=== PATIENT | male | born 1985 | race Caucasian/White ===

== ENCOUNTER 2016-04-14 22:24 | Emergency (ER) | payer MEDICAID ==
[2016-04-14 22:31] VITALS: PULSE 76
[2016-04-14] MEDS ORDERED: ONDANSETRON 4 MG/2 ML VIAL ONE (22:46)
[2016-04-14] MEDS ORDERED: HYDROmorphONE/DILAUDID 1 MG/ML SYR ONE (22:47)
[2016-04-14] MEDS ORDERED: ONDANSETRON 4 MG/2 ML VIAL IVP ONE (22:53)
[2016-04-14] MEDS ORDERED: NS 1,000 ML IV ONE (22:53)
--- NOTE | 2016-04-14 22:53 | EDPHY ---
H & P Smoking Status: Never smoked Time Seen by Provider: 04/14/16 22:41 HPI/ROS: CHIEF COMPLAINT: Abdominal pain HISTORY OF PRESENT ILLNESS: 30-year-old male presents to the emergency department by private vehicle complaining of right-sided abdominal pain, right testicular pain and right flank pain that began abruptly around 5:00 p.m.. Patient has no nausea or vomiting. No reported trauma. He states that when he was urinating he noted some blood in his urine and he also had some burning sensation with urinating. Denies chest pain or difficulty breathing. Denies fevers or chills. Denies urinary frequency. REVIEW OF SYSTEMS: Constitutional: No fever, no chills. Eyes: No double or blurry vision. ENT: No sore throat. Respiratory: No cough, no shortness of breath. Cardiac: No chest pain. Gastrointestinal: Right-sided abdominal pain. No vomiting or diarrhea. Genitourinary: Hematuria, dysuria as above. Musculoskeletal: Right flank pain. No neck pain. Skin: No rashes. Neurological: No headache. (Von,Delmy M) Past Medical/Surgical History: Negative (Von,Delmy M) Social History: and lives in [place] (Von,Delmy M) Physical Exam: General Appearance: Alert, no distress. Temperature 36.4, 98% on room air. Eyes: Pupils equal and round. Extraocular motions are all intact. ENT: Mouth: Mucous membranes moist. Respiratory: No wheezing, rhonchi, or rales, lungs are clear to auscultation. Cardiovascular: Regular rate and rhythm. Gastrointestinal: Abdomen is soft and nontender, no masses, no rebound or guarding, bowel sounds normal. Mild CVA tenderness on the right. None on the left. Neurological: Alert and oriented x 3, cranial nerves II through XII grossly intact Skin: Warm and dry, no rashes. Musculoskeletal: Nontender to palpate along the cervical, thoracic or lumbar spine. Neck is supple. Genitourinary: Performed with nurseMaxim, at bedside. Circumcised penis. No testicular or scrotal swelling noted. Nontender to palpate the right or left testicle. Extremities: Full range of motion and no peripheral edema. Psychiatric: Patient is oriented X 3, there is no agitation. (Von,Delmy M) Constitutional: Initial Vital Signs Temperature (C) 36.4 C 04/14/16 22:29 Heart Rate 76 04/14/16 22:29 Respiratory Rate 18 04/14/16 22:29 Blood Pressure 112/73 04/14/16 22:29 O2 Sat (%) 98 04/14/16 22:29 O2 Delivery Mode Room Air O2 (L/minute) 2 Allergies/Adverse Reactions: No Known Allergies Allergy (Unverified 01/26/15 18:46) Home Medications: Medication Instructions Recorded Hydrocodone/APAP 5/325 [[place] 1 - 2 tab PO Q4H PRN #10 tab 04/14/16 5/325] Ondansetron HCl [Zofran] 4 mg PO Q4-6PRN PRN #10 tablet 04/14/16 Tamsulosin HCl [Flomax] 0.4 mg PO DAILY #10 cap 04/14/16 Medical Decision Making ED Course/Re-evaluation: 30-year-old male presents with abdominal pain and flank pain. He noted blood in the urine. I was concerned about possible kidney stone. CT scan of without contrast of the abdomen and pelvis was ordered. Urinalysis reveals 3+ blood. CBC and chemistries were within normal limits. (Delmy Longoria) [id number]: this patient signed over to me at 12:00 am from Delmy DUKE, follow-up CT scan, this patient's CT scan shows 5 x 3 mm in the right UVJ with moderate amount of hydronephrosis this explains the blood in his urine and flank and abdominal pain. He does have a very small 4 mm stone in left kidney. Otherwise unremarkable CT scan. I have met evaluated the patient is resting comfortably no acute distress, we did go over CT results with him. Understands he is stone needs to follow up with Urology. Urology has been given to him on his paperwork prescription for pain medicine, Flomax. He understands drink lots of water return emergency room if there is any worsening symptoms includes severe abdominal pain, fever, vomiting CT scan of the abdomen pelvis without contrast The results of the study are this shows a 5 x 3 mm right UVJ stone moderate hydronephrosis, also left 4 mm stone in the kidney parenchyma, otherwise unremarkable CT scan The study was read by Dr. Hooper I viewed the images myself on the PACS system. (Colton Mooney) Differential Diagnosis: Including but not limited to kidney stone, urinary tract infection, pyelonephritis, testicular torsion, acute appendicitis (Delmy Longoria) Care Turn Over: Care will be turned over to Dr. Colton Mooney at 11:35 p.m. (Delmy Longoria) - Data Points Laboratory Results: Laboratory Results 04/14/16 22:35 04/14/16 22:35 04/14/16 22:35 WBC 9.22 10^3/uL (3.80-9.50) RBC 4.92 10^6/uL (4.40-6.38) Hgb 15.0 g/dL (13.7-17.5) Hct 43.0 % (40.0-51.0) MCV 87.4 fL (81.5-99.8) MCH 30.5 pg (27.9-34.1) MCHC 34.9 g/dL (32.4-36.7) RDW 13.0 % (11.5-15.2) Plt Count 251 10^3/uL (150-400) MPV 10.6 fL (8.7-11.7) Neut % (Auto) 60.6 % (39.3-74.2) Lymph % (Auto) 24.8 % (15.0-45.0) [place] % (Auto) 11.1 % (4.5-13.0) Eos % (Auto) 2.6 % (0.6-7.6) Baso % (Auto) 0.7 % (0.3-1.7) Nucleat RBC Rel Count 0.0 % (0.0-0.2) Absolute Neuts (auto) 5.59 10^3/uL (1.70-6.50) Absolute Lymphs (auto) 2.29 10^3/uL (1.00-3.00) Absolute Monos (auto) 1.02 H 10^3/uL (0.30-0.80) Absolute Eos (auto) 0.24 10^3/uL (0.03-0.40) Absolute Basos (auto) 0.06 10^3/uL (0.02-0.10) Absolute Nucleated RBC 0.00 10^3/uL (0-0.01) Immature Gran % 0.2 % (0.0-1.1) Immature Gran # 0.02 10^3/uL (0.00-0.10) Sodium 142 mEq/L (134-144) Potassium 4.1 mEq/L (3.5-5.2) Chloride 104 mEq/L (97-110) Carbon Dioxide 26 mEq/l (22-31) Anion Gap 12 mEq/L (8-16) BUN 18 mg/dL (7-23) Creatinine 1.0 mg/dL (0.7-1.3) Estimated GFR > 60 Glucose 91 mg/dL (70-100) Calcium 9.6 mg/dL (8.5-10.4) Urine Color YELLOW Urine Appearance HAZY Urine pH 6.0 (5.0-7.5) Ur Specific [place] 1.017 (1.002-1.030) Urine Protein NEGATIVE (NEGATIVE) Urine Ketones NEGATIVE (NEGATIVE) Urine Blood 3+ H (NEGATIVE) Urine Nitrate NEGATIVE (NEGATIVE) Urine Bilirubin NEGATIVE (NEGATIVE) Urine Urobilinogen NEGATIVE EU (0.2-1.0) Ur Leukocyte Esterase NEGATIVE (NEGATIVE) Urine RBC 50-182 H /hpf (0-3) Urine WBC 1-3 /hpf (0-3) Ur Epithelial Cells Not Reported Urine Bacteria TRACE H /hpf (NONE SEEN) Urine Mucus TRACE /lpf (NONE-1+) Urine Glucose NEGATIVE (NEGATIVE) Medications Given: Discontinued Medications Hydromorphone HCl (Dilaudid) 0.5 mg IVP EDNOW ONE Stop: 04/14/16 22:55 Last Admin: 04/14/16 22:58 Dose: 0.5 mg Hydromorphone HCl (Dilaudid) 0.5 mg IVP EDNOW ONE Stop: 04/14/16 23:27 Last Admin: 04/14/16 23:15 Dose: 0.5 mg Sodium Chloride (Ns) 1,000 mls @ 0 mls/hr IV EDNOW ONE PRN Reason: Wide Open Stop: 04/14/16 22:54 Last Admin: 04/14/16 22:57 Dose: 1,000 mls Ondansetron HCl (Zofran) 4 mg IVP EDNOW ONE Stop: 04/14/16 22:54 Last Admin: 04/14/16 22:57 Dose: 4 mg Departure - Departure Disposition: Home, Routine, Self-Care Clinical Impression: Kidney stone Condition: Good Instructions: Kidney Stones (ED) Additional Instructions: Flomax daily until stone passes. Strain your urine. Percocet for severe pain as directed. Referrals: Priscilla Sena MD [Medical Doctor] - 2-3 days without fail (Urologist on-call) Prescriptions: Tamsulosin HCl [Flomax] 0.4 mg PO DAILY #10 cap Hydrocodone/APAP 5/325 [[place] 5/325] 1 - 2 tab PO Q4H PRN #10 tab PRN Reason: Pain, Moderate Ondansetron HCl [Zofran] 4 mg PO Q4-6PRN PRN #10 tablet PRN Reason: Nausea/Vomiting, Use 1st
[2016-04-14] MEDS ORDERED: HYDROmorphONE/DILAUDID 1 MG/ML SYR IVP ONE ×2 (22:54→23:26)
[2016-04-14 22:59] LABS: COLOR YELLOW; LEUKOCYTE ESTERASE,URINE NEGATIVE (NEGATIVE); NITRITE,URINE NEGATIVE (NEGATIVE)
[2016-04-14 23:00] LABS: % IMMATURE GRANULYOCYTES 0.2 % (0.0-1.1); ABSOLUTE IMMATURE GRANULOCYTES 0.02 10^3/uL (0.00-0.10); ADD DIFF? NO; ADD MORPH? NO; ADD SCAN? NO; ATYPICAL LYMPHOCYTE FLAG 20 (0-99); FRAGMENT RBC FLAG 0 (0-99); LEFT SHIFT FLG 0 (0-99); LIPEMIA HEMOLYSIS FLAG 90 (0-99); MEAN CELL HEMOGLOBIN 30.5 pg (27.9-34.1); MEAN CELL HEMOGLOBIN CONCENTR. 34.9 g/dL (32.4-36.7); MEAN CELL VOLUME 87.4 fL (81.5-99.8); MEAN PLATELET VOLUME 10.6 fL (8.7-11.7); PLATELET CLUMPS FLAG 0 (0-99); PLATELET COUNT 251 10^3/uL (150-400); RED BLOOD CELL COUNT 4.92 10^6/uL (4.40-6.38)
[2016-04-14 23:13] LABS: BACTERIA TRACE /hpf (NONE SEEN); MUCUS TRACE /lpf (NONE-1+); RBC,URINE 50-182 /hpf (0-3)
[2016-04-14 23:22] LABS: ANION GAP 12 mEq/L (8-16); CALCIUM 9.6 mg/dL (8.5-10.4); CARBON DIOXIDE 26 mEq/l (22-31); CHLORIDE 104 mEq/L (97-110); GLOMERULAR FILTRATION RATE > 60; GLUCOSE 91 mg/dL (70-100); POTASSIUM 4.1 mEq/L (3.5-5.2); SODIUM 142 mEq/L (134-144)
--- NOTE | 2016-04-14 23:55 | CT ---
CT Scan of the Urinary Tract (Abdomen and Pelvis Without Contrast) April 14, 2016 Indication: Right flank pain Technique: Multidetector helical CT imaging was performed from the kidneys to the urinary bladder wi thout contrast. Dose reduction techniques were utilized. Findings: Moderate right hydronephrosis and hydroureter due to a 5 x 3 mm calculus at the ureterovesi francisco junction. The right kidney is minimally enlarged and edematous relative to the left kidney. No pe rinephric fluid collection. A nonobstructing 4 x 3 mm calculus resides in the left intrarenal collecting system. No hydronephrosi s or hydroureter on the left. The urinary bladder is nearly completely empty. No intra-abdominal mass, lymphadenopathy or free fluid. The noncontrast liver, spleen, pancreas, gallbladder, adrenal glands, the abdominal aorta, and bowel pattern are normal. The appendix is normal. Lung bases are clear. Normal bones except for moderate degenerative disk disease at T11-T12. Impression: 1. Moderate right hydronephrosis and hydroureter secondary to a 5 x 3 mm calculus at the ureterovesic al junction. 2. Left nephrolithiasis. Comment: The case was discussed with Delmy Longoria PA-C at 11:50 p.m. April 14, 2016. Attention: This CT examination is specifically designed to evaluate patients who are clinically susp ected of having acute obstructive uropathy. This examination does not use radiographic contrast, and as such, provides only a limited evaluation of the abdomen, pelvis and retroperitoneum. If there i s further clinical suspicion for pathological conditions other than obstructive uropathy, a complete CT evaluation of the abdomen and pelvis utilizing intravenous, oral, and rectal contrast should be co nsidered.
[2016-04-15] MEDS ORDERED: HYDROCOD/APAP 5/325 PREPACK#6 BTL TAKEHOME ONE (00:01)
[2016-04-15 00:26] VITALS: BP 129/80; RESP 16; TEMP 97.9; O2SAT 96
== END 2016-04-15 00:26 | disposition home or self-care (01) ==
DX: N20.0 Calculus of kidney (principal)
CPT/HCPCS: 96374; J1170; J2405

== ENCOUNTER 2017-09-02 17:22 | Emergency (ER) | payer MEDICAID, OTHER ==
[2017-09-02] MEDS ORDERED: NS 1,000 ML IV ONE (17:30)
[2017-09-02] MEDS ORDERED: HYDROmorphONE/DILAUDID 2 MG/ML INJ IVP ONE (17:30)
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
[2017-09-02] MEDS ORDERED: HYDROmorphONE/DILAUDID 1 MG/ML INJ ONE (17:35)
[2017-09-02] MEDS ORDERED: ONDANSETRON 4 MG/2 ML VIAL ONE (17:36)
[2017-09-02] MEDS ORDERED: ONDANSETRON 4 MG/2 ML VIAL IVP ONE (17:39)
[2017-09-02] MEDS ORDERED: KETOROLAC 30 MG/1 ML SDV IM ONE (19:02)
[2017-09-02] MEDS ORDERED: CYCLOBENZAPRINE 10 MG TAB PO ONE (19:02)
[2017-09-02] MEDS ORDERED: ACETAMINOPHEN 500 MG TAB PO ONE (19:02)
[2017-09-02] MEDS ORDERED: LIDOCAINE 4%/MENTHOL 1% PATCH TD ONE (19:31)
[2017-09-02 19:55] VITALS: BP 111/73
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
[2017-09-02] MEDS ORDERED: PATCH REMOVAL 1 EA PATCH TD SCH (21:00)
== END 2017-09-02 20:01 | disposition home or self-care (01) ==
DX: S22.42XA Multiple fractures of ribs, left side, initial encounter for closed fracture (principal); S42.022A Displaced fracture of shaft of left clavicle, initial encounter for closed fracture; J93.9 Pneumothorax, unspecified; V01.90XA Pedestrian on foot injured in collision with pedal cycle, unspecified whether traffic or nontraffic accident, initial encounter; Y99.8 Other external cause status; Y93.01 Activity, walking, marching and hiking
CPT/HCPCS: 96374; A4565; J1170; J1885; J2405

== ENCOUNTER 2017-09-02 23:57 | Emergency (ER) | payer OTHER ==
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
--- NOTE | 2017-09-03 02:13 | GPN ---
[f rep st] PROCEDURE NOTE PREPROCEDURE DIAGNOSIS: Left chest expanding traumatic pneumothorax. INDICATIONS: Left chest expanding pneumothorax. POSTPROCEDURE DIAGNOSIS: Is 90% resolution of left chest traumatic pneumothorax. FINDINGS: Traumatic left chest pneumothorax reduced, but not eliminated, by placement of a Heimlich valve. PROCEDURE: Is placement of left chest Heimlich valve second intercostal space. PROCEDURE IN DETAIL: The patient was appropriately consented. Time-out was carried out. He was placed in the sitting position on the ER [place]. The left chest was carefully prepped and draped with ChloraPrep. The first/second interspace was identified. The skin was anesthetized. The deep tissue was anesthetized. The needle was advanced into the chest and bubbling was obtained. The skin is incised. A small diameter catheter over needle chest tube was carefully advanced to the chest. The needle was removed. It is connected to the Heimlich valve via an in-line valve. Note is made the catheter was flushed with 1 cc of 1% xylocaine to minimize pleuritic pain with re-expansion. The Heimlich pneumothorax tube was sutured in position. A sterile dressing was applied. Followup chest x-ray shows almost complete resolution. He will return in 12 hours for followup film. /[id number]/MODL MTDD
[2017-09-03 02:43] VITALS: BP 104/66
== END 2017-09-03 02:15 | disposition home or self-care (01) ==
PROC: 0W9B30Z Drainage of Left Pleural Cavity with Drainage Device, Percutaneous Approach (ICD-10-PCS; principal; 2017-09-02)
DX: S27.0XXA Traumatic pneumothorax, initial encounter (principal); X58.XXXA Exposure to other specified factors, initial encounter; Y99.8 Other external cause status

== ENCOUNTER 2017-09-03 11:53 | Emergency (ER) | payer OTHER ==
--- NOTE | 2017-09-03 12:38 | EDPHY ---
H & P Stated Complaint: FOLLOW UP TO PNEUMOTHORAX/CT Time Seen by Provider: 09/03/17 12:21 HPI/ROS: CHIEF COMPLAINT: Pneumothorax follow-up HISTORY OF PRESENT ILLNESS: The patient presents to the ED for a follow-up of a pneumothorax. Patient was seen in the emergency department yesterday and had a small Heimlich valve placed by Dr. Anaya. The patient denies any acute complaints and states that he is feeling better. REVIEW OF SYSTEMS: A comprehensive 10 point review of systems is otherwise negative aside from elements mentioned in the history of present illness. Source: Patient Exam Limitations: No limitations - Personal History Current Tetanus Diphtheria and Acellular Pertussis (TDAP): Unsure - Medical/Surgical History Hx Asthma: No Hx Chronic Respiratory Disease: No Hx Diabetes: No Hx Cardiac Disease: No Hx Renal Disease: No Hx Cirrhosis: No Hx Alcoholism: No Hx HIV/AIDS: No Hx Splenectomy or Spleen Trauma: No Other PMH: PNEUMOTHORAX - Social History Smoking Status: Never smoked - Physical Exam Exam: General Appearance: Alert, no distress Eyes: Pupils equal and round no pallor or injection ENT, Mouth: Mucous membranes moist Respiratory: There are no retractions, lungs are clear to auscultation, Heimlich valve to left anterior chest wall Cardiovascular: Regular rate and rhythm Gastrointestinal: Abdomen is soft and nontender, no masses, bowel sounds normal Constitutional: Initial Vital Signs Temperature (C) 36.7 C 09/03/17 12:10 Heart Rate 50 L 09/03/17 12:10 Respiratory Rate 18 09/03/17 12:10 Blood Pressure 103/55 L 09/03/17 12:10 O2 Sat (%) 98 09/03/17 12:10 O2 Delivery Mode Room Air Allergies/Adverse Reactions: No Known Allergies Allergy (Verified 09/03/17 12:08) Home Medications: Medication Instructions Recorded Cyclobenzaprine [Flexeril 10 MG 10 mg PO TID PRN #15 tab 09/02/17 (*)] HYDROmorphone HCL [Dilaudid 2 mg 2 mg PO Q4-6PRN PRN #14 tab 09/02/17 (RX)] Ketorolac Tromethamine 10 mg PO Q6H PRN #16 tab 09/02/17 Medical Decision Making - Diagnostics Imaging Results: Imaging Impressions Chest X-Ray 09/03/17 12:21 Impression: The left chest tube may be kinked. The pneumothorax is slightly larger than 10 hours ago, but much improved since before the chest tube was placed. Results discussed with Dr. Sterling at 1:00 PM. ED Course/Re-evaluation: The patient was seen by Dr. Anaya. He continues to have a persistent mild apical pneumothorax. He will be discharged home and follow up with Dr. Anaya as an outpatient tomorrow. Departure - Departure Disposition: [facility] Clinical Impression: Pneumothorax Condition: Good Instructions: Traumatic Pneumothorax (ED) Additional Instructions: 1. Please follow up tomorrow with Dr. Anaya in the radiology department after your x-ray 2. Please return to the emergency department for severe pain or other concerns. Referrals: Sarwat Merlos [Primary Care Provider] - As per Instructions
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
[2017-09-03 13:43] VITALS: BP 108/72
== END 2017-09-03 13:41 ==
DX: S27.0XXD Traumatic pneumothorax, subsequent encounter (principal); X58.XXXD Exposure to other specified factors, subsequent encounter

== ENCOUNTER → 2017-09-04 | Outpatient (CLI) | payer OTHER ==
[2017-09-04 10:29] VITALS: BP 114/62
== END ==
LOC: FIMAGING 10:56 → EDSTATUS 10:56
PROVIDERS: ATTEND Surgery
DX: Z48.03 Encounter for change or removal of drains (principal); J93.9 Pneumothorax, unspecified; S42.002A Fracture of unspecified part of left clavicle, initial encounter for closed fracture

== ENCOUNTER → 2017-09-04 | Outpatient (CLI) | payer OTHER | LOC: FIMAGING 15:25 | PROVIDERS: ATTEND Surgery | DX: Z09 Encounter for follow-up examination after completed treatment for conditions other than malignant neoplasm (principal); J93.9 Pneumothorax, unspecified; Z98.890 Other specified postprocedural states ==